=== PATIENT | male | born 1980 | race Caucasian/White ===

== ENCOUNTER 2017-03-05 19:06 | Inpatient (IN) | payer BC ==
[~2017-03-05] VITALS: Ht 172.7 cm; Wt 86.5 kg
[2017-03-05 19:35] LABS: HEMATOCRIT 43.5 % (38.0-50.0); MCH 28.3 PG (29.0-34.0); MCHC 34.9 G/DL (30.0-36.0); MEAN PLAT.VOLUME 10.5 uM^3 (9.0-12.4); PLATELET COUNT 244 K/uL (156-360); RBC DIS.WIDTH-CV 11.8 % (11.8-14.6); RBC DIS.WIDTH-SD 34.5 % (39-53); RED BLOOD COUNT 5.37 M/uL (4.00-5.50); WHITE BLOOD COUNT 11.8 K/uL (4.1-10.2)
[2017-03-05 19:42] LABS: CHLORIDE 101 mEq/L (99-109); SODIUM 138 mEq/L (136-147)
[2017-03-05 19:45] LABS: GLUCOSE 93 mg/dL (70-99)
[2017-03-05 19:46] LABS: ANION GAP 12 MEQ/L (2-14); TOTAL BILIRUBIN 0.7 mg/dL (0.0-1.0)
[2017-03-05 19:48] LABS: ALKALINE PHOSPHATASE 110 IU/L (3-129); GFR ESTIMATE (CALCULATED) > 59 mL/min/
[2017-03-05 19:49] LABS: UREA NITROGEN (BUN) 11 mg/dL (9-23)
[2017-03-05 19:50] LABS: DIRECT BILIRUBIN 0.3 mg/dL (0.0-0.3)
[2017-03-05 19:52] LABS: LIPASE 261 U/L (1.0-51.0)
[2017-03-05] MEDS ORDERED: PRAVACHOL20 MG PO (22:09)
[2017-03-05] MEDS ORDERED: ADVIL,NUPRIN,M200 MG PO (22:09)
[2017-03-05] MEDS ORDERED: LISINOPRIL40 MG PO (22:09)
[2017-03-06] VITALS (7 sets, daily range): BP systolic 103–130; BP diastolic 69–80
[2017-03-06 06:43] LABS: EOSINOPHIL COUNT 0.2 K/uL (0-0.3); IMMATURE GRANULOCYTE (%) 0.3 % (0.0-0.7); MCH 28.3 PG (29.0-34.0); MCHC 34.3 G/DL (30.0-36.0); MCV 82.6 FL (86-99); MONOCYTE (%) 8.8 % (3-12); MONOCYTE COUNT 0.8 K/uL (0-0.8); NEUTROPHIL (%) 66.7 % (45-76); PLATELET COUNT 191 K/uL (156-360); RBC DIS.WIDTH-CV 11.7 % (11.8-14.6); RBC DIS.WIDTH-SD 35.4 % (39-53); RED BLOOD COUNT 4.48 M/uL (4.00-5.50)
[2017-03-06 06:59] LABS: ALKALINE PHOSPHATASE 80 IU/L (3-129); ANION GAP 4 MEQ/L (2-14); CHLORIDE 105 MEQ/L (99-109); GFR ESTIMATE (CALCULATED) > 59 mL/min/; GLUCOSE 99 mg/dL (70-99); LIPASE 163 U/L (1.0-51.0); POTASSIUM 4.1 MEQ/L (3.7-5.4); SAMPLE HEMOLYSIS CHECK 0; SAMPLE ICTERIC CHECK 0; SAMPLE LIPEMIA CHECK 0; SODIUM 136 MEQ/L (136-147); TOTAL BILIRUBIN 0.8 MG/DL (0.0-1.0); UREA NITROGEN (BUN) 10 mg/dL (9-23)
[2017-03-06 07:53] LABS: HDL CHOLESTEROL 27 MG/DL (Desirable>=40); LDL CHOLESTEROL 51 mg/dL (Desirable<100); NON-HDL CHOLESTEROL 66 mg/dL (Desirable<160); TOTAL CHOLESTEROL 93 mg/dL (Desirable<200); TRIGLYCERIDES 76 MG/DL (Normal: <150)
[2017-03-07 02:37] VITALS: BP 118/68
[2017-03-07 06:50] LABS: ANION GAP 10 MEQ/L (2-14); CHLORIDE 106 MEQ/L (99-109); GFR ESTIMATE (CALCULATED) > 59 mL/min/; LIPASE 95 U/L (1.0-51.0); POTASSIUM 4.2 MEQ/L (3.7-5.4); SAMPLE HEMOLYSIS CHECK 0; SAMPLE ICTERIC CHECK 0; SAMPLE LIPEMIA CHECK 0; SODIUM 139 MEQ/L (136-147); UREA NITROGEN (BUN) 9 mg/dL (9-23)
[2017-03-07 07:02] LABS: GLUCOSE 59 mg/dL (70-99)
[2017-03-07 07:58] VITALS: BP 123/66
[2017-03-07] MEDS ORDERED: NORCO 5/3251 TABLET PO (11:32)
== END 2017-03-07 13:01 | disposition home or self-care (01) | DRG 440 ==
LOC: EME 19:06 → EDOF 22:10 → ENRESERV 22:36 → 5EAST 03-06 00:16
PROVIDERS: Emergency Medicine; Family Medicine
DX: K85.90 Acute pancreatitis without necrosis or infection, unspecified (principal); I10 Essential (primary) hypertension; E78.5 Hyperlipidemia, unspecified; Z83.3 Family history of diabetes mellitus
CPT/HCPCS: 74176; 74183; 80048; 80053; 80061; 80076; 83690; 85025; 85027; 99281; 99285; J2270; J7030

== ENCOUNTER → 2017-04-08 | Outpatient (CLI) | payer BC ==
[~2017-04-08] MED LIST: ADVIL,NUPRIN,M200 MG PO; LISINOPRIL40 MG PO; NORCO 5/3251 TABLET PO; PRAVACHOL20 MG PO
== END | disposition home or self-care (01) ==
LOC: NUC 07:48
DX: K85.90 Acute pancreatitis without necrosis or infection, unspecified (principal)
CPT/HCPCS: 78226; A9537

== ENCOUNTER → 2017-07-14 | Outpatient (CLI) | payer BC ==
[~2017-07-14] VITALS: Ht 172.7 cm; Wt 83.9 kg
[~2017-07-14] MED LIST changes: +DEXILANT60 MG PO
== END | disposition home or self-care (01) ==
LOC: AMB 08:54
DX: K86.9 Disease of pancreas, unspecified (principal); I10 Essential (primary) hypertension; E78.5 Hyperlipidemia, unspecified; K29.70 Gastritis, unspecified, without bleeding
CPT/HCPCS: 93005; C1726; J2250